=== PATIENT | female | born 1950 | race Caucasian/White ===

== ENCOUNTER 2018-03-02 12:08 | Day surgery (SDC) | payer MEDICARE ==
[2018-02-23 15:56] VITALS: BMI 35.5
[~2018-03-02 12:08] MED LIST: DEXAMETHASONE SOD PHOSPHATE 10 MG/ML 1 ML VIAL IV ONE; HYDROmorphone 0.5 MG/0.5 ML SYRINGE IVP PRN; LACTATED RINGERS 1,000 ML IV SCH; LIDOCAINE 1% 20 ML VIAL (10MG/ML) FOR IV START INTRADERMA PRN; Pre Op ABX Message 1 EACH MISC MISCELLANE ONE
[2018-03-02 13:00] VITALS: RESP 16; TEMP 98
[2018-03-02] MEDS ORDERED: fentaNYL (PF) 50 MCG/ML 2 ML AMP ONE (14:37)
[2018-03-02] MEDS ORDERED: PROPOFOL 10 MG/ML 20 ML VIAL IV ONE (14:37)
[2018-03-02] MEDS ORDERED: MIDAZOLAM 2 MG/2 ML VIAL ONE (14:37)
[2018-03-02] MEDS ORDERED: LIDOCAINE 1% INJ 10MG/ML (20 ML MDV) ONE (14:37)
[2018-03-02] MEDS ORDERED: LIDOCAINE 2% (PF) 20 MG/ML 10 ML AMP SQ ONE (14:40)
[2018-03-02] MEDS ORDERED: ROPIVACAINE 5 MG/ML 30 ML VIAL MISCELLANE ONE (14:40)
[2018-03-02 15:27] VITALS: BP 122/72; PULSE 94
--- NOTE | 2018-03-02 20:09 | OP ---
OPERATIVE REPORT PREOPERATIVE DIAGNOSES: Degenerative osteophytic spurring and ganglion cyst, DIP joint, left index finger. POSTOPERATIVE DIAGNOSES: Degenerative osteophytic spurring and ganglion cyst, DIP joint, left index finger. PROCEDURE: Arthrotomy DIP joint, left index finger with excision of ganglion cyst and osteophytic spur. PROCEDURE: The patient was taken to the Operative Suite were a digital block anesthetic was performed. The hand was prepped and draped in the usual manner. The finger was exsanguinated and Germaine drain was used a tourniquet in the proximal aspect of the finger. A T-shaped incision was made over the DIP joint centered over the ganglion cyst. Skin flaps were gently dissected and care was taken to avoid harm and injury to the extensor tendon. A longitudinal arthrotomy was made along the DIP joint on the side of the ganglion cyst. The cyst was excised along with osteophytic spurs. The wound was irrigated and the skin was closed with 5-0 nylon suture. A soft, bulky dressing was applied, and the patient was taken to the Recovery Room in satisfactory condition. MMODL / IJN: [id number] /
== END 2018-03-02 15:45 | disposition home or self-care (01) ==
LOC: OR 12:08
PROVIDERS: ATTEND Orthopaedic Surgery Hand Surgery
DX: M25.742 Osteophyte, left hand (principal); M67.48 Ganglion, other site; Z91.041 Radiographic dye allergy status; Z91.048 Other nonmedicinal substance allergy status; I10 Essential (primary) hypertension; I25.2 Old myocardial infarction
CPT/HCPCS: 26160; J2250; J1100; J2001 ×2; J3010; J2795; J2704; 88304